=== PATIENT | female | born 1985 | race Caucasian/White ===

== ENCOUNTER 2022-09-15 20:35 | Emergency (ER) | payer OTHER ==
[~2022-09-15] VITALS: Ht 162.6 cm; Wt 87.2 kg
[2022-09-16 03:41] VITALS: TEMP 97.2
[2022-09-16] MEDS ORDERED: DERMABOND TOPICAL SKIN ADHESIVE TOP ONE (06:05)
[2022-09-16] MEDS ORDERED: DOXYCYCLINE HYCLATE 100MG TABLET PO ONE (06:20)
[2022-09-16] MEDS ORDERED: DOXY-443 PO (06:23)
[2022-09-16 06:45] VITALS: BP 118/66; O2SAT 99
== END 2022-09-16 06:46 | disposition home or self-care (01) ==
LOC: M ED 20:35
DX: S81.011A Laceration without foreign body, right knee, initial encounter (principal); W19.XXXA Unspecified fall, initial encounter; Y92.89 Other specified places as the place of occurrence of the external cause; Y93.89 Activity, other specified